=== PATIENT | female | born 1985 | race African-American/Black ===

== ENCOUNTER 2017-10-14 18:02 | Emergency (ER) | payer MEDICAID ==
[~2017-10-14] VITALS: Ht 154.9 cm; Wt 140.6 kg
[2017-10-14 18:33] VITALS: BP 112/60
== END 2017-10-14 21:05 | disposition home or self-care (01) ==
LOC: ER 18:02
DX: S79.821A Other specified injuries of right thigh, initial encounter (principal); J45.909 Unspecified asthma, uncomplicated; M17.11 Unilateral primary osteoarthritis, right knee; Z88.6 Allergy status to analgesic agent; X58.XXXA Exposure to other specified factors, initial encounter; Y93.89 Activity, other specified; Y92.89 Other specified places as the place of occurrence of the external cause; Y99.8 Other external cause status
CPT/HCPCS: 73562; 81025

== ENCOUNTER 2019-09-17 13:11 | Emergency (ER) | payer MEDICAID ==
[~2019-09-17] VITALS: Ht 154.9 cm; Wt 86.2 kg
[2019-09-17 13:55] VITALS: BP 117/68
== END 2019-09-17 14:46 | disposition home or self-care (01) ==
LOC: ER 13:11
DX: L03.011 Cellulitis of right finger (principal); J45.909 Unspecified asthma, uncomplicated; Z32.02 Encounter for pregnancy test, result negative; Z88.8 Allergy status to other drugs, medicaments and biological substances
CPT/HCPCS: 10060

== ENCOUNTER 2019-12-29 06:31 | Emergency (ER) | payer MEDICAID ==
[~2019-12-29] VITALS: Ht 154.9 cm; Wt 85.3 kg
[2019-12-29 08:15] LABS: Urine Bacteria NONE SEEN /hpf (None Seen); Urine Blood 2+ /uL (Negative); Urine Mucus FEW (None Seen); Urine Specific Gravity 1.031 (1.001-1.035); Urine WBC 2 /hpf (0 - 5)
[2019-12-29 08:58] LABS: Basophils # (auto) 0 10 ^3/uL (0-0.2); Basophils % (auto) 0.4 % (0.0-2.0); Eosinophils # (auto) 0.1 10 ^3/uL (0-0.8); Eosinophils % (auto) 1.4 % (0.0-7.0); Hematocrit 37.9 % (36.0-46.0); Hemoglobin 12.3 g/dL (12.2-16.2); Lymphocytes # (auto) 1.8 10 ^3/uL (0.4-5.4); Lymphocytes % (auto) 33.9 % (10.0-50.0); Mean Corpuscular Hemoglobin 29.1 pg (28.0-32.0); Mean Corpuscular Hgb Conc. 32.5 g/dL (32.0-36.0); Mean Corpuscular Volume 89.4 fL (80.0-100.0); Monocytes # (auto) 0.4 10 ^3/uL (0-1.3); Monocytes % (auto) 8.2 % (0.0-12.0); Neutrophils # (auto) 2.9 10 ^3/uL (1.6-8.6); Neutrophils % (auto) 56.1 % (37.0-80.0); Nucleated Red Blood Cells % 0.1 %; Platelet Count (auto) 230 10^3/uL (140-450); Red Blood Cells 4.24 10^6/uL (4.0-5.20); Red Cell Distribution Width 14.7 % (11.8-14.3); White Blood Cell 5.2 10^3/uL (4.4-10.8)
[2019-12-29 09:11] LABS: Albumin 3.6 g/dL (3.4-5.0); BUN/Creatinine Ratio 22.7; Calcium 8.6 mg/dL (8.5-10.1); Potassium 4.3 mmol/L (3.5-5.1)
[2019-12-29 09:13] LABS: Bilirubin, Total 0.6 mg/dL (0.2-1.0); Total Protein 7.1 g/dL (6.4-8.2)
[2019-12-29 09:56] VITALS: BP 103/71
== END 2019-12-29 10:01 | disposition home or self-care (01) ==
LOC: ER 06:31
DX: N83.201 Unspecified ovarian cyst, right side (principal); N39.0 Urinary tract infection, site not specified; J45.909 Unspecified asthma, uncomplicated; Z88.8 Allergy status to other drugs, medicaments and biological substances
CPT/HCPCS: 36415; 80053; 81001; 84702; 85025

== ENCOUNTER 2020-07-26 15:38 | Emergency (ER) | payer MEDICAID ==
[~2020-07-26] VITALS: Ht 154.9 cm; Wt 89.8 kg
[2020-07-26 18:56] VITALS: BP 108/69
== END 2020-07-26 21:07 | disposition home or self-care (01) ==
LOC: ER 15:38
DX: R22.1 Localized swelling, mass and lump, neck (principal); J45.909 Unspecified asthma, uncomplicated; Z88.8 Allergy status to other drugs, medicaments and biological substances
CPT/HCPCS: 70450; 70490; 81025

== ENCOUNTER 2020-12-30 07:32 | Emergency (ER) | payer MEDICAID ==
[~2020-12-30] VITALS: Ht 154.9 cm; Wt 95.3 kg
[2020-12-30 08:09] VITALS: BP 106/77
[2020-12-30] MEDS ORDERED: KETOROLAC TROMETH 60MG/2ML VIAL IM ONE (08:30)
== END 2020-12-30 08:43 | disposition home or self-care (01) ==
LOC: ER 07:32
DX: M54.41 Lumbago with sciatica, right side (principal); J45.909 Unspecified asthma, uncomplicated; Z88.6 Allergy status to analgesic agent
CPT/HCPCS: 96372; 99283; J1885